=== PATIENT | female | born 1985 | race Caucasian/White ===

== ENCOUNTER 2016-11-26 16:48 | Emergency (ER) | payer OTHER ==
[~2016-11-26 16:48] MED LIST: BUPR8MIS SL; GLC/500 PO; GLIP1TAB85 PO; LBT100 PO; LPT/20 PO; LSN20 PO; MELO15TA4 PO; NRV/5 PO; OXYC-57 PO; ZLF/50 PO
[2016-11-26 16:55] VITALS: TEMP 37.3; Ht 167.6 cm
[2016-11-26] MEDS ORDERED: SITA50TA3 PO (17:16)
[2016-11-26] MEDS ORDERED: INSDGI SC (17:16)
--- NOTE | 2016-11-26 17:42 | DIAGNOSTIC IMAGING REPORT ---
LEFT KNEE 3 VIEWS HISTORY: L knee pain/swelling COMPARISON: None. FINDINGS: There is no fracture or dislocation. Moderate to large joint effusion. This likely results in the mild displacement of the patella inferiorly. Cartilage spaces are maintained for age. No radiopaque foreign bodies. IMPRESSION: Moderate to large joint effusion. Electronically signed by: Irving Poole M.D. 11/26/2016 5:40 PM Dictated Date/Time: 11/26/2016 5:39 PM
[2016-11-26] MEDS ORDERED: OXYCODONE HCL IR 5 MG TAB (IMMEDIATE RELEASE) PO STA (18:09)
[2016-11-26] MEDS ORDERED: OXYC1TAB3 PO (18:14)
[2016-11-26 18:35] VITALS: BP 136/78; PULSE 90; O2SAT 99
--- NOTE | 2016-11-26 20:13 | EMERGENCY ROOM VISIT NOTE ---
History First contact with patient: 17:15 Chief Complaint: KNEEPAIN Stated Complaint: HUGE PAINFUL KNEE History of Present Illness The patient is a 31 year old female who presents to the Emergency Room with complaints of left knee swelling and pain. The patient denies any known trauma. She does admit to doing a lot of squatting activities 2 days ago. She now reports that any weightbearing worsens her pain to a 9 out of 10. She does report a history of arthritis behind her RIGHT knee cap. She denies any history of significant injuries to the left knee or chronic knee pain. She has had the knee scoped in the past by Dr. Sal for patellofemoral syndrome. She also denies any pain extending into the thigh or leg, or paresthesias/numbness of the left lower extremity. Review of Systems 10 system review was performed and was negative except for pertinent positives and negatives as indicated in history of present illness Past Medical/Surgical History Medical Problems: (1) DIAB DEVIN WO COMPL, TYPE II OR UNSPEC TYPE, NOT UNCNTRLD (2) HYPERTENSION NOS (3) PYELONEPHRITIS NOS (4) TOBACCO USE DISORDER (5) URIN TRACT INFECTION NOS Family History FH: diabetes mellitus FH: hypertension Social History Smoking Status: Current Every Day Smoker Alcohol Use: none Drug Use: other Marital Status: in relationship Housing Status: lives with significant other Occupation Status: unemployed Current/Historical Medications Scheduled Amlodipine Besylate (Amlodipine Besylate), 5 MG PO DAILY Atorvastatin (Atorvastatin Calcium), 20 MG PO QAM Buprenorphine Hcl-Naloxone Hcl (Suboxone 8-2 Mg), 1 TAB SL DAILY Insulin Glargine (Lantus), 20 UNITS SC DAILY Labetalol HCl (Labetalol HCl), 100 MG PO AMPM Lisinopril (Lisinopril), 20 MG PO DAILY Meloxicam (Mobic), 15 MG PO DAILY Metformin Hcl (Glucophage), 1,000 MG PO BID Sertraline HCl (Sertraline HCl), 50 MG PO DAILY Sitagliptin (Januvia), 50 MG PO DAILY Scheduled PRN Oxycodone Ir (Roxicodone Ir), 1-2 TAB PO Q4H PRN for Pain Allergies Coded Allergies: Penicillins (Verified Allergy, Severe, SEVERE HIVES, 11/26/16) Aspirin (Verified Allergy, Intermediate, GI SYMPTOMS, 11/26/16) Morphine (Verified Allergy, Intermediate, tight in chest, 11/26/16) Tramadol (Verified Allergy, Mild, HIVES, 11/26/16) Fexofenadine (Verified Adverse Reaction, Mild, nausea and vomiting, ) Physical Exam Vital Signs Date Time Temp Pulse Resp B/P Pulse Ox O2 Delivery O2 Flow Rate FiO2 11/26/16 18:35 90 18 136/78 99 11/26/16 16:55 37.3 108 18 145/95 99 Room Air Physical Exam CONSTITUTIONAL: Morbidly obese female, alert and oriented X 3 with positive affect. Patient appears in moderate discomfort from pain. HEENT: Normocephalic, atraumatic. Pupils equal, round and reactive. NECK: Full active range of motion without discomfort. MUSCULOSKELETAL: Examination of the left knee shows a 2+ joint effusion. She has peripatellar tenderness to palpation. No focal tenderness to palpation through the quadriceps or patellar tendons. She is able to straight leg raise. No popliteal masses. She has mild tenderness to palpation through the medial lateral joint line. Range of motion is limited because of pain. No erythema or increased warmth to palpation. Pedal pulses are intact. INTEGUMENTARY: No rash or other significant dermatologic conditions noted. NEUROLOGIC: Left foot and toes are sensory intact. Medical Decision & Procedures ER Provider Diagnostic Interpretation: My interpretation of left knee x-rays shows a large joint effusion without any obvious fracture, dislocation or subluxation. Radiologist report is as follows: LEFT KNEE 3 VIEWS HISTORY: L knee pain/swelling COMPARISON: None. FINDINGS: There is no fracture or dislocation. Moderate to large joint effusion. This likely results in the mild displacement of the patella inferiorly. Cartilage spaces are maintained for age. No radiopaque foreign bodies. IMPRESSION: Moderate to large joint effusion. Medications Administered Medications (Trade) Dose Ordered Sig/Radha Route Start Time Stop Time Status Last Admin Dose Admin Oxycodone HCl (Roxicodone Immediate Rel Tab) 5 mg NOW STAT PO 11/26/16 18:09 11/26/16 18:10 DC 11/26/16 18:18 5 MG ED Course Patient history and physical exam were performed. Nurse's notes were reviewed. X-rays of the left knee shows a joint effusion without any other acute findings. The patient was administered OxyIR for pain. She was provided a home pack and prescription for the same. She was encouraged to take ibuprofen and Tylenol for baseline pain relief. A knee immobilizer and crutches were dispensed. I did suggest that she follow-up with Dr. Sal for further reevaluation and management. The patient was happy with plan of care, voiced understanding of all discharge instructions, and rated her pain a 6 out of 10, which was right after she received her oral oxycodone. Just prior to patient's departure, I did review the [place] Prescription Drug Monitoring Program, showing that the patient receives prescriptions for buprenorphine. She was advised that she would need to discuss further pain management with her pain management doctor in [place]. [facility] [place] Drug Monitoring Program Search Results: patient reviewed within database, see additional documentation Impression Primary Impression: Left knee pain Additional Impression: history patellofemoral syndrome Departure Information Prescriptions Oxycodone Ir (Roxicodone Ir) 5 Mg Tab 1-2 TAB PO Q4H Y for Pain, #10 TAB For Initial Treatment Prov: Donovan Garduno PA 11/26/16 Referrals Sheron Omer M.D. (PCP) Patient Instructions [facility] Problem Qualifiers Primary Impression: Left knee pain Chronicity: acute Qualified Codes: M25.562 - Pain in left knee
[2016-12-24] MEDS ORDERED: CYCL10TA6 PO (15:50)
[2016-12-24] MEDS ORDERED: INSDGI SC (15:50)
[2016-12-24] MEDS ORDERED: TRIA1SPR4 NAE (15:56)
[2016-12-24] MEDS ORDERED: CYM/30 PO (15:56)
[2016-12-24] MEDS ORDERED: ACET325T96 PO (15:56)
[2016-12-24] MEDS ORDERED: SITA100T3 PO (15:57)
[2016-12-24] MEDS ORDERED: NICO14DI9 TOP (16:08)
== END 2016-11-26 18:38 | disposition home or self-care (01) ==
LOC: C.EDB 16:49 → C.EDD 18:38
DX: M25.562 Pain in left knee (principal); E11.9 Type 2 diabetes mellitus without complications; I10 Essential (primary) hypertension; Z87.440 Personal history of urinary (tract) infections; F17.210 Nicotine dependence, cigarettes, uncomplicated; Z83.3 Family history of diabetes mellitus; Z82.49 Family history of ischemic heart disease and other diseases of the circulatory system; Z79.4 Long term (current) use of insulin; Z79.899 Other long term (current) drug therapy; E66.01 Morbid (severe) obesity due to excess calories

== ENCOUNTER 2017-01-01 12:14 | Day surgery (SDC) | payer OTHER ==
--- NOTE | 2016-12-30 15:03 | HISTORY & PHYSICAL EXAMINATION ---
DATE OF ADMISSION: 01/01/2017 HISTORY OF PRESENT ILLNESS: The patient presents as a 30-year-old white female with complaints of ongoing pain attributed to her left knee. 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 She has failed attempts at conservative therapy including aggressive physical therapy, patellofemoral bracing, anti-inflammatories, activity modification and continues to have complaints of pain that has not responded to conservative management and she presents after having had a recent subluxation episode of her patella with a probable patellofemoral crepitation that is markedly increased since previous examinations over the period of last several months it has not resolved or relented and for that reason, the decision made for arthroscopy, chondroplasty patellofemoral joint and possible lateral retinacular release pending findings at time of surgery, postoperative pain management, DVT prophylaxis, antibiotics as necessary. The patient a 30-year-old 5 foot 6, 187 pounds, BMI of 30.13, white female with the above complaints noted. PAST MEDICAL HISTORY: Significant for hypertension, anxiety; diabetes, currently on insulin. FAMILY HISTORY: Otherwise unremarkable and noncontributory. SOCIAL HISTORY: The patient relates smoking partial pack cigarettes daily. No alcohol use. No recreational drug use. PAST SURGICAL HISTORY: Significant for previous bilateral knee arthroscopies. ALLERGIES: None. MEDICATIONS: Ibuprofen 800 mg 3 times daily, insulin as needed daily. REVIEW OF SYSTEMS: Otherwise unremarkable. See history of present illness for pertinent positives. PHYSICAL EXAMINATION: GENERAL: Very pleasant 31-year-old white female. HEENT: Otherwise, atraumatic, normocephalic. Alert and oriented x3. HEART: Regular at 68 beats per minute. No murmurs are noted. LUNGS: Clear without rales, rhonchi, or wheezes noted. ABDOMEN: Soft, nontender, nondistended. Bowel sounds are present in all 4 quadrants. RECTAL: No rectal examination was performed. MUSCULOSKELETAL: Consistent with that of patellofemoral crepitation, patellofemoral medial and lateral joint line pain and tenderness and moderate effusion of the left knee with palpable crepitation of the patellofemoral joint. IMAGING DATA: X-rays revealed evidence of patellar tilt, some narrowing of the lateral patellofemoral joint space. No evidence of other fracture or other abnormalities are noted. PLAN: For arthroscopy, arthroscopic chondroplasty, possible patellofemoral medial retinacular reefing, pending findings at time of surgery. Postoperative pain management, DVT prophylaxis, antibiotics. MTDD
[2016-12-30 16:37] LABS: BASO % 0.3 %; BASO ABS # 0.03 K/uL (0-0.2); COMPLETE YES; EOS % 3.1 %; HEMATOCRIT 41.2 % (37-47); IG% 0.4 %; LYMPH ABS # 3.56 K/uL (1.2-3.4); MEAN CELL VOLUME 81.9 fL (80-100); MEAN CORPUSCULAR HEMOGLOBIN 26.8 pg (25-34); MEAN CORPUSCULAR HGB CONC 32.8 g/dl (32-36); MEAN PLATELET VOLUME 8.9 fL (7.4-10.4); MONO % 5.8 %; NEUT % 57.4 %; PLATELET COUNT 283 K/uL (130-400); RED BLOOD COUNT 5.03 M/uL (4.2-5.4); WHITE BLOOD COUNT 10.78 K/uL (4.8-10.8)
[2016-12-30 16:46] LABS: PARTIAL THROMBOPLASTIN RATIO 1.2; PROTHROMBIN TIME (PATIENT) 10.3 SECONDS (9.0-12.0)
[2016-12-30 17:17] LABS: BUN/CREATININE RATIO 13.3 (10-20); CALCIUM 9.8 mg/dl (8.5-10.1); CREATININE 0.74 mg/dl (0.60-1.20); POTASSIUM 4.5 mmol/L (3.5-5.1)
[~2017-01-01] VITALS: Ht 167.6 cm; Wt 85.0 kg
--- NOTE | 2017-01-01 11:47 | History & Physical Bridge Note ---
H&P Re-Evaluation Bridge Note: I have examined the patient, reviewed the History & Physical and in the interval since the performance of the History & Physical I have noted the following changes of clinical significance: No changes noted
[~2017-01-01 12:14] MED LIST changes: +ACET325T96 PO; +ATROPINE SULFATE 0.1 MG/ML 5ML SYR IV PRN; +CLINDAMYCIN PHOS 150 MG/ML 2 ML VIAL IV SCH; +CYCL10TA6 PO; +CYM/30 PO; +EpHEDrine SULFATE INJ 50 MG/ML AMP IV PRN; +FENTANYL CITRATE INJ 50 MCG/1 ML 2 ML VIAL IV PRN; -GLIP1TAB85 PO; +HYDROmorphone INJ 1 MG/ML SYR IV PRN; +INSDGI SC; +LABETALOL HCL IV 5 MG/ML 20ML IV PRN; +LACTATED RINGER'S 1000ML 1,000 ML IV SCH; +MEPERIDINE HCL 25 MG/ML CARP IV PRN; +NICO14DI9 TOP; +ONDANSETRON INJ 2 MG/ML 2 ML VIAL IV PRN; -OXYC-57 PO; +SITA100T3 PO; +TRIA1SPR4 NAE
[2017-01-01 12:31] VITALS: BP 131/90; PULSE 97; TEMP 36.9; O2SAT 98; Ht 167.6 cm; Wt 85.0 kg
[2017-01-01] MEDS ORDERED: CLINDAMYCIN 600 MG/54 ML D5W IV SCH (13:00)
[2017-01-01] MEDS ORDERED: BUPIVACAINE/EPINEPHRINE 0.5% MPF 1:200,000 30 ML VIAL ONE (13:39)
[2017-01-01] MEDS ORDERED: FENTANYL CITRATE INJ 50 MCG/1 ML 2 ML VIAL ONE (14:14)
[2017-01-01] MEDS ORDERED: MIDAZOLAM HCL 1 MG/ML 2ML VIAL ONE (14:14)
[2017-01-01] MEDS ORDERED: LIDOCAINE HCL 2% 2 ML VIAL (20MG/ML) ONE (14:30)
[2017-01-01] MEDS ORDERED: ONDANSETRON INJ 2 MG/ML 2 ML VIAL ONE (14:30)
[2017-01-01] MEDS ORDERED: DEXAMETHASONE SOD INJ 4 MG/ML VIAL ONE (14:30)
[2017-01-01] MEDS ORDERED: PROPOFOL IV EMULSION 10 MG/ML 20 ML VIAL IV ONE (14:30)
[2017-01-01] MEDS ORDERED: MoRPHine SULFATE 2 MG/ML CARP ONE (14:54)
--- NOTE | 2017-01-01 15:02 | [facility] Post Operative Brief Note ---
Immediate Operative Summary Operative Date January 01, 2017. Pre-Operative Diagnosis Patellofemoral disese with chrondromalacia of the patella, lateral patellofemoral compression syndrome Post-Operative Diagnosis Same as pre-operative Procedure(s) Performed Left knee arthroscopy, excision of plica and chondroplasty of the patella Surgeon Dr. Richard Sal Splicing Technician Surgeon(s) None Estimated Blood Loss 3ml Findings hyperthrophic plica grade 3 patella Specimens None per surgeon Complication(s) None Disposition Recovery Room / PACU
[2017-01-01] MEDS ORDERED: RXC5 PO (15:11)
[2017-01-01] MEDS ORDERED: ONDANSETRON INJ 2 MG/ML 2 ML VIAL IV PRN (15:15)
[2017-01-01] MEDS ORDERED: MoRPHine SULFATE 2 MG/ML CARP IV PRN (15:15)
[2017-01-01] MEDS ORDERED: OXYCODONE HCL IR 5 MG TAB (IMMEDIATE RELEASE) PO PRN ×2 (15:15)
--- NOTE | 2017-01-01 15:22 | Discharge Instructions ---
Discharge Instructions Date of Service January 01, 2017. Visit Reason for Visit: Left Knee Chondromalacia Patellae Discharge Discharge Diagnosis / Problem: Left Knee Patellar Chondromalacia Discharge Goals Goal(s): Decrease discomfort, Improve function Activity Recommendations Activity Limitations: per Instructions/Follow-up section Anesthesia . Post Anesthesia Instructions: If you have had General Anesthesia or IV Sedation: * Do not drive today. * Resume driving when surgeon permits. * Do not make important decisions or sign legal documents today. * Call surgeon for: 1. Temperature elevations greater than 101 degrees F. 2. Uncontrollable pain. 3. Excessive bleeding. 4. Persistent nausea and vomiting. 5. Medication intolerance (nausea, vomiting or rash). * For nausea and vomiting use only clear liquids such as: tea, soda, bouillon until nausea subsides, then gradually increase diet as tolerated. * If you have any concerns or questions, call your surgeon's office. If physician is unavailable and it is an emergency, call 911 or go to the nearest emergency room. . Instructions / Follow-Up Instructions / Follow-Up ACTIVITY RECOMMENDATIONS: * You may walk on the leg with or without crutches as comfort permits. * Bending of the knee should start at once. * Do not shower for 48 hours following surgery. No direct shower pressure to wounds. Do not soak wounds. No tub baths. SPECIAL CARE INSTRUCTIONS: * You may cleanse the skin adjacent to the small wounds with soap and water at the time of the first dressing change. * The application of an ice bag to the front and sides of the knee will decrease swelling and discomfort for the first 48 hours. * The small incisions may be sore and develop bruising. This bruising does not require any special care. SPECIAL PRECAUTIONS: * If you experience unusual pain unrelieved by prescriptions, temperature elevation (100 degrees F. or above) or progressive swelling or bleeding, you should contact our office at for further evaluation. * You may have been prescribed pain medication. If you experience nausea and/or fine skin rash, discontinue this medication and contact our office at for an alternate medication. DRESSING: * Dressing should be comfortable and absorb any leakage of fluid and/or blood. * The dressing may become moist or bloodstained. * Dressing may be removed 48 hours after surgery and bandaids placed over the small surgical incisions. If can be removed sooner if it becomes very soiled or loose. * Bandaids may be used over next several days as needed and can be discontinued when there is not further drainage from the wounds. FOLLOW UP VISIT: If appointment is not already scheduled: Please call [facility] to make a follow-up appointment for 10 -14 days from the day of your surgery at . Diet Recommendations Recommended Home Diet: resume previous diet Procedures Procedures Performed: Left knee arthroscopy, excision of plica and chondroplasty of the patella Pending Studies Studies pending at discharge: no Medical Emergencies . Who to Call and When: Medical Emergencies: If at any time you feel your situation is an emergency, please call 911 immediately. . Non-Emergent Contact Non-Emergency issues call your: Surgeon Call Non-Emergent contact if: temperature is above 101.5, your pain is not controlled, your pain is worsening, wound has increased drainage, wound has increased redness . . "Provider Documentation" section prepared by Dayne Young. . [place] Drug Monitoring Program Search Results: patient reviewed within database, see additional documentation Drug Monitoring Findings: Patient receiving Buprenorphine regularly from a contracted Physician. Pt will need to return to this person for further pain medications once her prescription has run out.
--- NOTE | 2017-01-01 15:33 | OPERATIVE REPORT ---
DATE OF OPERATION: 01/01/2017 PREOPERATIVE DIAGNOSIS: Left knee patellofemoral syndrome, patellofemoral chondromalacia and medial synovial plica. POSTOPERATIVE DIAGNOSIS: Same. PROCEDURES: Arthroscopy, arthroscopic resection medial synovial plica, arthroscopic chondroplasty patella. SURGEON: Dr. Sal. ANESTHESIA: General. COMPLICATIONS: None. GROSS FINDINGS: The patient is a very pleasant 31-year-old white female who has previously undergone [place] reconstruction and presents today for arthroscopic evaluation of her left knee. At time of surgery, the above findings were noted. She has failed attempts at conservative management including physical therapy, closed chain isokinetic exercises, patellofemoral bracing as well as previous corticosteroid injections elsewhere. She presents for arthroscopic evaluation of arthroscopy. Above findings were noted. OPERATION AND FINDINGS: PROCEDURE: After proper prepping and draping of the left lower extremity, arthroscopic examination began in the region of the left lower extremity revealed there to be evidence of a grade 3 chondral lesion involving the medial facet of the patella. There was noted to be evidence of a large symptomatic medial synovial plica which was excised. This was removed in its entirety. The patella underwent a chondroplasty back to a stable margin. The medial meniscus was then probed and noted to be intact. Lateral meniscus was visualized and probed and noted to be intact. Anterior and posterior cruciate ligaments were visualized and probed and noted to be intact. No peripheral tears or detachments were noted. All particulate matter and debris was removed. Skin portals were closed with 4-0 nylon. Sterile compression dressing was placed. The patient was taken to recovery room in stable condition. I attest to the content of the Intraoperative Record and any orders documented therein. Any exceptions are noted below. [facility]
[2017-01-01] MEDS ORDERED: HYDROmorphone INJ 0.5 MG/0.5 ML SYR IV PRN (15:45)
[2017-01-01 16:00] VITALS: BP 123/64; PULSE 79; TEMP 36.6; O2SAT 94
--- NOTE | 2017-01-01 16:19 | Anesthesiology Progress Note ---
Anesthesia Post Op Note Date & Time January 01, 2017 at 16:19 Vital Signs Pain Intensity: 0 Vital Signs Past 12 Hours Date Time Temp Pulse Resp B/P Pulse Ox O2 Delivery O2 Flow Rate FiO2 01/01/17 15:45 37 78 16 115/69 94 01/01/17 15:35 76 16 119/73 94 Room Air 01/01/17 15:25 76 16 119/73 100 Mask 10 01/01/17 15:15 76 16 130/63 100 Mask 10 01/01/17 15:09 36.2 76 16 125/76 100 Mask 10 01/01/17 12:31 36.9 97 18 131/90 98 Room Air
[2017-01-01 16:35] VITALS: BP 108/64; PULSE 81; TEMP 36.6; O2SAT 96
--- NOTE | 2017-01-03 10:55 | Progress Note ---
Progress Note Date of Service January 03, 2017. Progress Note LATE ENTRY/ADDENDUM Please note that it was brought to the press writer's attention by Dr. Rylee Bautista that no written note was on Anesthesia Record regarding admin of Morphine to patient. Per the request of Dr. Rylee Bautista, press writer would like to add that immediately after Morphine was administered and it was realized that patient was allergic to Morphine -- sometime between end of surgery at 14:59 and out of OR time of 15:06, Dr. Jonel Bowman was notified by phone. Since all vital signs were stable and unchanged, no verbal order was given by Dr. Bowman to press writer. Since dexamethasone 4 mg IV had already been administered earlier in the case, press writer gave diphenhydramine 50 mg IV. Thank you.
== END 2017-01-01 16:40 | disposition home or self-care (01) ==
LOC: C.ACU 12:14
PROVIDERS: ATTEND Orthopaedic Surgery
DX: M22.2X2 Patellofemoral disorders, left knee (principal); M22.42 Chondromalacia patellae, left knee; M67.52 Plica syndrome, left knee; I10 Essential (primary) hypertension; E11.9 Type 2 diabetes mellitus without complications; F17.200 Nicotine dependence, unspecified, uncomplicated; Z79.4 Long term (current) use of insulin; Z68.30 Body mass index [BMI] 30.0-30.9, adult; E66.9 Obesity, unspecified; Z88.0 Allergy status to penicillin; Z88.5 Allergy status to narcotic agent; Z88.1 Allergy status to other antibiotic agents; Z90.89 Acquired absence of other organs; Z98.890 Other specified postprocedural states; F32.9 Major depressive disorder, single episode, unspecified